=== PATIENT | male | born 1955 | race Caucasian/White ===

== ENCOUNTER → 2018-05-09 | Outpatient (CLI) | payer OTHER | END | disposition home or self-care (01) | LOC: CFH 12:43 | PROVIDERS: ATTEND Internal Medicine Cardiovascular Disease | DX: I11.9 Hypertensive heart disease without heart failure (principal); R06.02 Shortness of breath | CPT/HCPCS: 78452; 93017; 93306; A9502 ==

== ENCOUNTER 2018-08-08 10:02 | Day surgery (SDC) | payer OTHER ==
[~2018-08-08] VITALS: Ht 180.3 cm; Wt 131.8 kg
[2018-08-08 10:24] VITALS: BP 129/58
[2018-08-08] MEDS ORDERED: SODIUM CHLORIDE 0.9% 1,000 ML IV SCH (10:30)
[2018-08-08] MEDS ORDERED: PLEASE ENTER HEIGHT AND WEIGHT MC SCH (10:30)
[2018-08-08] MEDS ORDERED: ATOR20TA9 PO (10:33)
[2018-08-08] MEDS ORDERED: ASPI-621 PO (10:33)
[2018-08-08] MEDS ORDERED: MELO15TA24 PO (10:33)
[2018-08-08] MEDS ORDERED: AMLO10TA6 PO (10:33)
[2018-08-08] MEDS ORDERED: LISI40TA PO (10:33)
[2018-08-08] MEDS ORDERED: HYDR12.53 PO (10:33)
[2018-08-08] MEDS ORDERED: LEVO100T PO (10:33)
[2018-08-08] MEDS ORDERED: PROPOFOL 10 MG/ML, 20ML ONE (12:46)
== END 2018-08-08 14:36 | disposition home or self-care (01) ==
LOC: CACL 10:02
PROVIDERS: ATTEND Internal Medicine Cardiovascular Disease
DX: I35.1 Nonrheumatic aortic (valve) insufficiency (principal); E78.5 Hyperlipidemia, unspecified; I10 Essential (primary) hypertension; E66.9 Obesity, unspecified; E03.9 Hypothyroidism, unspecified; Z68.41 Body mass index [BMI] 40.0-44.9, adult
CPT/HCPCS: 93312; 93325; J2704